=== PATIENT | male | born 1930 | race Caucasian/White ===

== ENCOUNTER → 2016-07-21 | Outpatient (CLI) | payer BC ==
[~2016-07-21] MED LIST: GADOBUTROL 10 ML VIAL IVP ONE
== END ==
LOC: FIMAGING 14:43
PROVIDERS: ATTEND Psychiatry & Neurology Neurology
DX: R41.3 Other amnesia (principal); Z85.9 Personal history of malignant neoplasm, unspecified
CPT/HCPCS: A9585

== ENCOUNTER → 2016-10-03 | Outpatient (CLI) | payer BC | LOC: FIMAGING 14:25 | PROVIDERS: ATTEND Internal Medicine Endocrinology, Diabetes & Metabolism | DX: Z13.820 Encounter for screening for osteoporosis (principal); M85.80 Other specified disorders of bone density and structure, unspecified site ==

== ENCOUNTER → 2018-02-27 | Outpatient (CLI) | payer BC | LOC: BMCIMAGING 14:03 | PROVIDERS: ATTEND Family Medicine | DX: M25.561 Pain in right knee (principal) ==